=== PATIENT | male | born 1965 | race Hispanic/Latino ===

== ENCOUNTER → 2018-10-20 | Day surgery (SDC) | payer OTHER ==
[2018-10-19 11:44] LABS: BASOPHILS # (AUTO) 0.1 (0.0-0.1); EOSINOPHILS # (AUTO) 0.2 (0.0-0.4); EOSINOPHILS % 3.8 % (0.0-6.0); HEMATOCRIT 43.9 % (38.2-49.6); HEMOGLOBIN 15.1 g/dL (14.0-18.0); LYMPHOCYTES # (AUTO) 1.8 (1.0-3.2); LYMPHOCYTES % 30.4 % (18.0-39.1); MEAN CORPUSCULAR HEMOGLOBIN 30.8 pg (28-32); MEAN CORPUSCULAR HGB CONC 34.4 g/dL (31-35); MEAN CORPUSCULAR VOLUME 89.6 fL (81-99); MONOCYTES # (AUTO) 0.6 (0.2-0.8); MONOCYTES % 9.7 % (4.4-11.3); NEUTROPHILS # (AUTO) 3.2 (2.1-6.9); NEUTROPHILS % 54.8 % (38.7-80.0); PLATELET COUNT 185 x10e3/uL (140-360); RED CELL DISTRIBUTION WIDTH 12.3 % (11.7-14.4)
[2018-10-19 12:04] LABS: INR 0.81; PROTHROMBIN TIME 11.7 seconds (11.9-14.5)
[2018-10-19 12:13] LABS: ALANINE AMINOTRANSFERASE 18 IU/L (0-55); ALBUMIN 3.8 g/dL (3.5-5.0); ALBUMIN/GLOBULIN RATIO 1.2 (0.8-2.0); ALKALINE PHOSPHATASE 104 IU/L (40-150); ANION GAP 13.8 mmol/L (8-16); BLOOD UREA NITROGEN 8 mg/dL (7-26); BUN/CREATININE RATIO 10 (6-25); CALCIUM 9.2 mg/dL (8.4-10.2); CARBON DIOXIDE 22 mmol/L (22-29); CHLORIDE 105 mmol/L (98-107); CREATININE, SERUM 0.83 mg/dL (0.72-1.25); EST GLOMERULAR FILTRATION RATE > 60 ML/MIN (60-); GLUCOSE 201 mg/dL (74-118); POTASSIUM 3.8 mmol/L (3.5-5.1); SODIUM 137 mmol/L (136-145)
[~2018-10-20] VITALS: Ht 162.6 cm; Wt 74.4 kg
[2018-10-20] VITALS (9 sets, daily range): BP systolic 119–163; BP diastolic 70–90
[~2018-10-20] MED LIST: ASPIR 8181 MG PO; DIOVAN80 MG PO; FARXIGA PO; FENOFIBRATE145 MG PO; FENTANYL CITRATE/PF 100MCG/2 ML INJ ONE; HEPARIN SOD (PORCINE) 1000 UNIT/ML 30ML ONE; HEPARIN SOD/SOD CHLORIDE 2,000 ML ONE; IOPAMIDOL 370 MG/ML 200 ML INFUS..BTL INJ ONE; LIDOCAINE HCL 2% LOCAL 20 ML VIAL ONE; METFORMIN HCL500 MG PO; METOPROLOL SUCC50 MG PO; MIDAZOLAM HCL 2 MG/2 ML VIAL ONE; NITROGLYCERIN/D5W 200 MCG/ML 250 ML ONE; SODIUM CHLORIDE 0.9% 1000ML 1,000 ML ONE; ULTRAM 50MG50 MG PO; VERAPAMIL HCL 2.5 MG/ML 2 ML VIAL ONE; VITAMIN D350000 UNIT PO
--- NOTE | 2018-10-20 09:15 | NUR ---
0915B edside report received from Kirk DINERO. Identiferx2 DR Riggins [facility] no fix. Alert oriented and appropriate, PERRLA, respirations even and unlabored to room air. Pulses x4 extremities equal and strong. Pedal pulses PT/DP x4 and Cap fill brisk < 3 sec. Skin warm and dry integrity appears D/I. IV 20g to left hand 500cc in bag. Presents healthy w/o s/s of infiltration or complaint. Abdomen soft and supple. pt offered toileting, denies need to urinate or defecate. No personal affects with patient. Family ( and mother at bedside). Currently w/o complaint of pain or need. Patient introduced and POC discussed with potential Dc time. tito/marylu
--- NOTE | 2018-10-20 09:45 | NUR ---
0945 RADIAL Compression removal: Initial Cuff volume 11 cc 945a -2 cc Removed No hematoma/bleeding noted with normal neurovascular function. 1000a -2 cc Removed No hematoma/ bleeding noted with normal neurovascular function. 1015a -2 cc Removed No hematoma/bleeding noted with normal neurovascular function. 1030am- No hematoma/ bleeding noted with normal neurovascular function. Air removal completed. Stasis achieved sterile 2x2,Tegaderm, Coban dressing No hematoma, bleeding noted with normal neurovascular function. Wrist splint in place. Pt instructed on POC. Ds/Rn
--- NOTE | 2018-10-20 10:30 | NUR ---
1030 Pt meets DC criteria. Rt TR band site assessed for s/s of complication and presence of hematoma. warm, dry, no discolor, and pulses present. IV removed from left hand. Distal tip appears intact. VS WNL. Pt denies pain, sob, or need at this time. Family at dc. Review of discharge paperwork and follow up instructions. verbalized understanding. Pt to wheelchair and transported to front of hospital. Transferred to private vehicle under own strength w/o incident with DC paperwork in hand. - ds/rn
--- NOTE | 2018-10-20 18:30 | Operative Report ---
DATE OF PROCEDURE: 10/20/2018 SURGEON: Maryam Ramirez MD PROCEDURES: 1. Selective coronary angiography x2. 2. Left heart catheterization. CONSENT: Informed consent was obtained and documented in the chart. SEDATION: 1. Midazolam 3 mg. 2. Fentanyl 75 mcg. PROCEDURE IN DETAIL: The patient was brought to the cardiac catheterization laboratory in a fasting state after written informed consent was obtained. Bilateral groins and right wrist were prepped and draped in the usual sterile fashion. 1% lidocaine was used to achieve local anesthesia over the right radial artery. A micropuncture needle was used to access the right radial artery and a 5-Turkish long sheath was placed via modified Seldinger technique. A 5-Turkish TIG was inserted and advanced into the ascending aorta over a J-wire. The TIG was used to cannulate the left main coronary artery under fluoroscopic guidance. Selective coronary angiograms were performed. The catheter was then repositioned to the right coronary artery under fluoroscopic guidance. Selective coronary angiogram was performed. The TIG was then advanced into the left ventricle. Hemodynamic measurements were obtained. The catheter was removed over the wire followed by the 5-Turkish sheath. Adequate hemostasis was achieved via TR band. The patient tolerated the procedure well with no immediate complications. FINDINGS: Left main coronary artery bifurcates into LAD and circumflex arteries. The left anterior descending is a moderate caliber vessel that wraps around the apex. There is an area of mild stenosis in the mid LAD approximately 20%. No other disease was appreciated. The circumflex artery is a large caliber vessel with a high OM1 followed by a moderate-sized OM2 and OM3. There is no angiographic evidence of coronary artery disease. The right coronary artery is a large caliber vessel that gives rise to the PDA. There is no significant coronary artery disease noted. LV pressure 143/11, LVEDP 18 mmHg. There was no gradient on pullback. IMPRESSION: Mild coronary artery disease. RECOMMENDATIONS: Aggressive risk factor modification and medical therapy. Maryam Ramirez MD ABS/MODL /[id number]
== END | disposition home or self-care (01) ==
LOC: CATH LAB 06:25
PROVIDERS: ATTEND Internal Medicine
DX: I25.10 Atherosclerotic heart disease of native coronary artery without angina pectoris (principal); R94.39 Abnormal result of other cardiovascular function study; I10 Essential (primary) hypertension; E78.5 Hyperlipidemia, unspecified; E11.9 Type 2 diabetes mellitus without complications; Z79.84 Long term (current) use of oral hypoglycemic drugs; Z01.812 Encounter for preprocedural laboratory examination; Z79.82 Long term (current) use of aspirin
CPT/HCPCS: 36415; 80053; 85025; 85610; 93454; C1769 ×2; C1887; J1644; J2001; J2250; J3010; J7030; Q9967; 93458